=== PATIENT | male | born 1995 | race Caucasian/White ===

== ENCOUNTER 2024-04-05 00:33 | Emergency (ER) | payer SELFPAY ==
[~2024-04-05] VITALS: Ht 175.3 cm; Wt 73.0 kg
[2024-04-05 00:46] VITALS: BP 115/66; PULSE 96; RESP 18; TEMP 97.8; O2SAT 99
== END 2024-04-05 02:00 | disposition home or self-care (01) ==
LOC: ER 00:33
DX: F10.129 Alcohol abuse with intoxication, unspecified (principal); F19.90 Other psychoactive substance use, unspecified, uncomplicated; Y90.9 Presence of alcohol in blood, level not specified
CPT/HCPCS: 99283

== ENCOUNTER 2024-06-23 17:06 | Emergency (ER) | payer MEDICAID ==
[~2024-06-23] VITALS: Ht 162.6 cm; Wt 68.0 kg
[2024-06-23 17:10] VITALS: BP 117/97; PULSE 92; RESP 16; TEMP 98.3; O2SAT 97
== END 2024-06-23 19:03 | disposition left against medical advice (07) ==
LOC: ER 17:06
DX: I10 Essential (primary) hypertension (principal); R42 Dizziness and giddiness; Z53.21 Procedure and treatment not carried out due to patient leaving prior to being seen by health care provider; Z86.59 Personal history of other mental and behavioral disorders